=== PATIENT | female | born 1985 | race Caucasian/White ===

== ENCOUNTER 2018-07-23 08:36 | Emergency (ER) | payer OTHER ==
--- NOTE | 2018-07-23 09:29 | RAD ---
THREE VIEWS OF THE RIGHT FOOT: Indication: Right foot injury. Comparison: None. FINDINGS: There is a mildly displaced transversely oriented fracture involving the base of the fifth metatarsal . Lisfranc alignment is preserved. No additional acute osseous abnormality is evident. IMPRESSION: Fifth metatarsal base fracture. POS: [id number]
== END 2018-07-23 09:52 | disposition home or self-care (01) ==
LOC: SCSER 08:36
DX: S92.351A Displaced fracture of fifth metatarsal bone, right foot, initial encounter for closed fracture (principal); X50.1XXA Overexertion from prolonged static or awkward postures, initial encounter
CPT/HCPCS: 29515